=== PATIENT | male | born 1985 | race Asian ===

== ENCOUNTER → 2023-09-07 | Outpatient (CLI) | payer OTHER ==
--- NOTE | 2023-09-07 14:57 | CT ---
EXAMINATION TYPE: CT abdomen pelvis wo con DATE OF EXAM: 09/07/2023 COMPARISON: None HISTORY: 38-year-old male renal stones, flank pain CT DLP: 798 mGycm. Automated exposure control for dose reduction was used. TECHNIQUE: Contiguous axial scanning of the abdomen and pelvis without IV contrast. Coronal and sagit allison reconstructions performed. FINDINGS: LUNG BASES: No significant abnormality is appreciated. LIVER/GB: No significant abnormality is appreciated. PANCREAS: No significant abnormality is seen. SPLEEN: No significant abnormality is seen. ADRENALS: No significant abnormality is seen. KIDNEYS: No significant abnormality is seen. BOWEL: Prominent ingested solid material distending the stomach. Clumped up, nonopacified and unenhan adriel bowel loops, particularly in the left paramedian mid abdomen. No dilated small bowel. Normal appe ndix. There is mild to moderate stool burden. Markedly tortuous colon extending into the right upper quadrant. No pericolonic inflammatory change. LYMPH NODES: No significant abnormality is seen. OTHER: No significant abnormality is seen. PELVIS: There is moderate circumferential bladder wall thickening. Prostate gland measures borderline at 4.1 cm wide. No abnormal fluid collection in the pelvis or pelvic lymphadenopathy. BONES: No osseous destructive process. IMPRESSION: 1. Moderate circumferential bladder wall thickening may be chronic for the patient. Correlate to exc lude cystitis. 2. No nephrolithiasis or hydronephrosis. 3. Incidental: A markedly tortuous sigmoid colon reaching up into the right upper quadrant.
== END | disposition home or self-care (01) ==
LOC: RADCTMAIN 12:34
PROVIDERS: ATTEND Urology
DX: N20.0 Calculus of kidney (principal); N32.89 Other specified disorders of bladder
CPT/HCPCS: 74176